=== PATIENT | male | born 1980 | race Two or more races ===

== ENCOUNTER → 2021-02-07 | Outpatient (CLI) | payer OTHER ==
--- NOTE | 2021-02-07 16:41 | RAD ---
EXAM: Scrotal sonogram. HISTORY: Varicocele. TECHNIQUE: Pompa scale and color Doppler sonographic imaging of the scrotum with spectral waveform soni lysis was performed. COMPARISON: None. FINDINGS: The testes are normal in size and demonstrate normal symmetric blood flow. No focal testicu lar parenchymal lesion is seen. There is a 9 mm right epididymal head cyst. There are left greater th an right varicoceles. No hydrocele seen. IMPRESSION: 1. Left greater than right varicoceles. 2. 9 mm right epididymal head cyst. 3. Unremarkable testes. Electronically signed by: Emerita Bradford MD (02/07/2021 4:39 PM) [id number]
== END ==
LOC: US 15:54
PROVIDERS: ATTEND Specialist
DX: I86.1 Scrotal varices (principal); N50.3 Cyst of epididymis
CPT/HCPCS: 76870